=== PATIENT | female | born 1955 | race Asian ===

== ENCOUNTER 2016-09-18 10:05 | Outpatient (CLI) | payer BC | END 2016-09-18 19:12 | disposition home or self-care (01) | LOC: MAMMO 10:05 | DX: Z12.31 Encounter for screening mammogram for malignant neoplasm of breast (principal) | CPT/HCPCS: G0202-TC ==

== ENCOUNTER 2018-03-29 15:33 | Outpatient (CLI) | payer BC | END 2018-03-29 20:20 | disposition home or self-care (01) | LOC: MAMMO 15:33 | DX: Z12.31 Encounter for screening mammogram for malignant neoplasm of breast (principal) ==

== ENCOUNTER 2019-12-04 09:23 | Outpatient (CLI) | payer BC | END 2019-12-04 21:34 | disposition home or self-care (01) | LOC: RAD 09:23 | DX: M54.5 Low back pain (principal); R60.0 Localized edema; M79.2 Neuralgia and neuritis, unspecified ==

== ENCOUNTER 2021-11-10 13:34 | Outpatient (CLI) | payer OTHER | END 2021-11-10 18:59 | disposition home or self-care (01) | LOC: MAMMO 13:34 | PROVIDERS: ATTEND Family Medicine | DX: Z12.31 Encounter for screening mammogram for malignant neoplasm of breast (principal); Z78.0 Asymptomatic menopausal state ==